=== PATIENT | female | born 1985 | race Caucasian/White ===

== ENCOUNTER → 2016-10-17 | Outpatient (CLI) | payer MEDICAID ==
--- NOTE | 2016-10-17 17:23 | RADIOLOGY REPORT (SQ) ---
EXAM DESCRIPTION: U/S OB 14+ TA/1 GEST W/DOPPLER COMPLETED DATE/TIME: 10/17/2016 5:11 pm REASON FOR STUDY: ENCOUNTER FOR SUPERVISION OF NORMAL Z34.82 ENCOUNTER FOR SUPRVSN OF NOR MAL , SECOND TRI COMPARISON: None. TECHNIQUE: Static and Dynamic grayscale imaging performed of gravid uterus using transabdominal appr oach. Additional selected color Doppler and spectral images recorded. All stored on PACS. LIMITATIONS: None. FINDINGS: EGA: 14 weeks 3 days MAGGI: 04/14/2007 EFW: 96 +/- 14 g PERCENTILE: Not calculated MK: 4.4 cm PLACENTA: Maternal right side PRESENTATION: Transverse ANATOMY: HEART RATE: 153 beats per minute. FOUR CHAMBER HEART: Not visualize THREE VESSEL CORD: Yes. CORD INSERTION: Visualized. KIDNEYS AND BLADDER: Kidneys not visualize STOMACH: Visualized. Appears normal. SPINE: Not visualize BRAIN AND LATERAL VENTRICLES: Cerebellum and cisterna magna not visualized lateral ventricles were vi sualized. OTHER: No other significant finding. MATERNAL ADNEXA: Maternal ovaries not visualized. CERVICAL LENGTH: 3.3 cm Closed. OTHER: No other significant finding. IMPRESSION: LIVING INTRAUTERINE . ESTIMATED GESTATIONAL AGE 14 weeks 3 days NO VISUALIZED ANOMALIES. Trimester of : Second trimester - 13 weeks 1 day to 27 weeks 6 days. TECHNICAL DOCUMENTATION: JOB ID: [id number] [employer]- All Rights Reserved
== END ==
LOC: RAD 15:36
PROVIDERS: ATTEND Nurse Practitioner Women's Health
DX: Z34.82 Encounter for supervision of other normal pregnancy, second trimester (principal)
CPT/HCPCS: 76805; 93976

== ENCOUNTER 2017-02-16 09:58 | Observation (INO) | payer MEDICAID ==
[2017-02-16] MEDS ORDERED: RINGERS SOLUTION,LACTATED 1,000 ML IV ONE (11:00)
[2017-02-16 11:08] LABS: APPEARANCE,URINE CLOUDY; BILIRUBIN,URINE NEGATIVE (NEGATIVE); GLUCOSE, URINE NEGATIVE (NEGATIVE); KETONES,URINE TRACE mg/dL (NEGATIVE); LEUKOCYTE ESTERASE,URINE LARGE (NEGATIVE); NITRITE,URINE NEGATIVE (NEGATIVE); PROTEIN,URINE 30 mg/dL (NEGATIVE); URINE SPECIFIC GRAVITY 1.029; UROBILINOGEN,URINE NEGATIVE mg/dL (<2.0)
[2017-02-16] MEDS ORDERED: ONDANSETRON HCL INJ/PF 4 MG/2 ML SDV ONE (11:20)
[2017-02-16 11:26] LABS: URINE BARBITURATES SCREEN NEGATIVE; URINE METHADONE SCREEN NEGATIVE; URINE OPIATES LOW NEGATIVE; URINE PHENCYCLIDINE SCREEN NEGATIVE
[2017-02-16] MEDS ORDERED: ONDANSETRON HCL INJ/PF 4 MG/2 ML SDV IV ONE (11:48)
[2017-02-16 12:11] LABS: ABSOLUTE LYMPHOCYTES (AUTO) 1.3 10^3/uL (0.5-4.7); ABSOLUTE MONOCYTES (AUTO) 0.3 10^3/uL (0.1-1.4); ABSOLUTE NEUT (AUTO) 6.2 10^3/uL (1.7-8.2); BASOPHILS % (AUTO) 0.4 % (0-2); EOSINOPHILS % (AUTO) 0.4 % (0-6); HEMATOCRIT 37.2 % (36.0-47.0); HEMOGLOBIN 12.7 g/dL (12.0-15.5); HGB HCT DIFFERENCE 0.9; LYMPHOCYTES % (AUTO) 16.7 % (13-45); MEAN CORPUSCULAR HEMOGLOBIN 29.6 pg (27.0-33.4); MEAN CORPUSCULAR HGB CONC 34.2 g/dL (32.0-36.0); MEAN CORPUSCULAR VOLUME 87 fl (80-97); MONOCYTES % (AUTO) 4.4 % (3-13); RED BLOOD COUNT 4.29 10^6/uL (3.72-5.28); RED CELL DISTRIBUTION WIDTH 13.4 % (11.5-14.0); SEGMENTED NEUTROPHILS % (AUTO) 78.1 % (42-78)
[2017-02-16 13:10] LABS: ADD HIVPANEL? NO; HIV (1 AND 2) ANTIBODY NEGATIVE (NEGATIVE)
[2017-02-16 13:35] VITALS: BP 114/64
[2017-02-16 14:26] LABS: CHLAM PCR NOT DETECTED (NOT DETECT)
[2017-02-16] MEDS ORDERED: ACETAMINOPHEN 325 MG TABLET ONE (17:26)
[2017-02-16] MEDS ORDERED: RINGERS SOLUTION,LACTATED 1,000 ML IV PRN (19:00)
[2017-02-16] MEDS ORDERED: ZOLPIDEM TARTRATE 5 MG TABLET ONE (20:41)
[2017-02-16] MEDS ORDERED: ZOLPIDEM TARTRATE 5 MG TABLET PO ONE (20:45)
[2017-02-17] MEDS ORDERED: ONDANSETRON 4 MG TAB.RAPDIS PO ONE (06:17)
[2017-02-17] MEDS ORDERED: ONDANSETRON 4 MG TAB.RAPDIS ONE (06:20)
[2017-02-17] MEDS ORDERED: ACETAMINOPHEN 325 MG TABLET ONE (06:21)
[2017-02-17] MEDS ORDERED: ACETAMINOPHEN 325 MG TABLET PO ONE (06:22)
--- NOTE | 2017-02-17 10:44 | PDOC DISCHARGE SUMMARY ---
General - Admit/Disc Date/PCP Admission Date/Primary Care Provider: 02/16/17 12:55 SHANNON LAFLEUR NP Discharge Date: 02/17/17 - Discharge Diagnosis (1) Suicidal ideation Is this a current diagnosis for this admission?: Yes Summary: Needs Involuntary commitment per Psych. Will discharge to ER for IC. - Additional Information Home Medications: Vitamin [-U Multiple Vitamin Capsule] 1 cap PO DAILY #0 capsule 10/21/14 History of Present Illness Patient complains of: suicidal ideation History of Present Illness: ASH WELSH is a 31 year old female with no care presented to L &D with complaint of N/V and abd cramping but upon arrival to to L&D notified provider (Dr. Ruiz) that she was going to kill herself. Hospital Course Hospital Course: 31 year old female with no care presented to L&D with complaint of N/V and abd cramping but upon arrival to to L&D notified provider (Dr. Ruiz) that she was going to kill herself. Pt was cleared from obstetrical complaints and admitted for observation by Dr. Ruiz until Psych could see her. Pt attempted to Leave AMA today - however able to stall pt and Psych has seen and evaluated her and recommends Involuntary commitment Physical Exam - Physical Exam Vital Signs: Temp Pulse Resp BP Pulse Ox 97.8 F 68 16 114/64 02/16/17 13:34 02/16/17 13:34 02/16/17 13:34 02/16/17 13:34 Intake & Output 02/16/17 02/17/17 02/18/17 06:59 06:59 06:59 Intake Total 300 Balance 300 Weight 81.4 kg General appearance: PRESENT: no acute distress Head exam: PRESENT: atraumatic Respiratory exam: PRESENT: clear to auscultation javier, symmetrical, unlabored Cardiovascular exam: PRESENT: RRR. ABSENT: diastolic murmur, rubs, systolic murmur Pulses: PRESENT: normal dorsalis pedis pul, +2 pedal pulses bilateral GI/Abdominal exam: PRESENT: normal bowel sounds, soft. ABSENT: distended, guarding, mass, organolmegaly, rebound, tenderness Rectal exam: PRESENT: deferred Extremities exam: PRESENT: full ROM. ABSENT: calf tenderness, clubbing, pedal edema Neurological exam: PRESENT: alert, awake, oriented to person, oriented to place , oriented to time, oriented to situation, CN II-XII grossly intact. ABSENT: motor sensory deficit Psychiatric exam: PRESENT: appropriate affect, normal mood. ABSENT: homicidal ideation, suicidal ideation Skin exam: PRESENT: dry, intact, warm. ABSENT: cyanosis, rash Result Laboratory Results: 02/16/17 11:47 02/16/17 02/16/17 02/16/17 10:20 11:47 11:47 WBC 8.0 RBC 4.29 Hgb 12.7 Hct 37.2 MCV 87 MCH 29.6 MCHC 34.2 RDW 13.4 Plt Count 229 Seg Neutrophils % 78.1 H Lymphocytes % 16.7 Monocytes % 4.4 Eosinophils % 0.4 Basophils % 0.4 Absolute Neutrophils 6.2 Absolute Lymphocytes 1.3 Absolute Monocytes 0.3 Absolute Eosinophils 0.0 Absolute Basophils 0.0 Urine Color EMI Urine Appearance CLOUDY Urine pH 5.0 Ur Specific [place] 1.029 Urine Protein 30 H Urine Glucose (UA) NEGATIVE Urine Ketones TRACE H Urine Blood NEGATIVE Urine Nitrite NEGATIVE Ur Leukocyte Esterase LARGE H Urine WBC (Auto) 18 Urine RBC (Auto) 1 Blood Type A NEGATIVE Antibody Screen NEGATIVE 02/16/17 11:47 WBC RBC Hgb Hct MCV MCH MCHC RDW Plt Count Seg Neutrophils % Lymphocytes % Monocytes % Eosinophils % Basophils % Absolute Neutrophils Absolute Lymphocytes Absolute Monocytes Absolute Eosinophils Absolute Basophils Urine Color Urine Appearance Urine pH Ur Specific [place] Urine Protein Urine Glucose (UA) Urine Ketones Urine Blood Urine Nitrite Ur Leukocyte Esterase Urine WBC (Auto) Urine RBC (Auto) Blood Type A NEGATIVE Antibody Screen Status: Imported from PACS Plan Discharge Plan: To ER for Involuntary Commitment
--- NOTE | 2017-02-17 10:53 | PSYCHOLOGICAL NOTE ---
<TAY SAMUELSBETH - Last Filed: 02/17/17 10:32> Psych Note - Psych Note Psych Note: Patient is a 31-year-old female who is under observation in labor and delivery. Patient is reportedly 32 weeks . Patient reported to her OB yesterday upon arrival that she wanted to commit suicide. Patient this morning continues to endorse that she wants to . Patient reports a plethora of social stressors. Patient states he is hopeless about her future and states that she has nothing. Patient reports she and her fianc had been residing with his mother and attempts to get custody of his 6-month-old baby with another woman. Patient states last week her fianc overdosed accidentally on heroin and was revived with Narcan. Patient reports to her knowledge that was her fianc's second time using. Patient reports she has been anxious and upset ever since this incident. Patient reports she struggled with concerns and worrying over how to provide for her 2-year-old who is living with them as well as their unborn baby. Patient reports since the overdose incident, her fianc has since abruptly left and she has not heard from him. She states they were at the home and he was cutting her son's hair, and left to get more batteries. She states he never came back. She reports he has posted on social media that he is single and possibly on the other side of the state. Patient reports she contacted his mother who reportedly told her she could retrieve her belongings but neither she or he are welcome to return to her home. Patient reports since she has not heard from her fianc she has been distraught, with stomach cramping and vomiting. She states yesterday she had her first thoughts of committing suicide. Note, patient initially stated she gave her 2-year-old and all of his belongings to her ex- because she feared she would hurt him, but when this was brought back up later in conversation she attempted to deny that she stated this. Note, patient clearly stated earlier she had thoughts of hurting her son Jose G. Patient just repeatedly states tearfully that she loves him and he is her whole world. She states her ex- is supportive and that they were /together for 17 years and broke up because he cheated on her with his now girlfriend. She states staying there is not an option because he and his girlfriend have a new baby. She does state all of her children are safe residing with him. She states she has no other personal belongings except a couple of pairs of pants at her fianc's home. Patient reports no other familial support. Patient reports her father had always been her big support system; however states her brother shot and killed him 3 years ago with the plan to collect insurance money. Patient reports she is hopeless, worthless, once her baby out, and wants to . It is alert and oriented. Mood is depressed with extremely tearful affect. Patient endorses suicidal ideations and possible homicidal ideations. Patient denies A/VH; delusions not noted. Thought processes were organized. Conversational speech was labile for rate, tone, and prosody. Intellectual abilities were estimated within average range. Attention and focus were poor. Insight, judgment, impulse control are poor. 311 (F 32.9) unspecified depressive disorder Social stressors Rule out cannabis use disorder Patient is recommended for involuntary commitment. Patient is considered high risk for suicide attempts in possibly attempting to harm her child as she indicated early in the conversation. Patient does have severe social stressors which are likely exasperating her depression and self-reported anxiety; however , in this case it appears they are risk factors for an actual suicide attempt. Patient states she is hopeless and worthless. Patient is reporting she wants to . We will additionally request a social work/discharge planning consultation. I consulted with Dr. Espinoza in regards to the care and management of this patient. HIGHWAY DESIGN ENGINEER states she is in agreement with disposition and recommendations. <HOMER ESPINOZA - Last Filed: 02/17/17 18:31> Psych Note - Psych Note Psych Note: Psychiatric provider for [facility] recommended Zoloft 50 mg daily if Patient was requesting medication management, and indicated "Patient should be warned of the risks and benefits and possible side effects to the fetus" with regard to the medication and "monitored by high risk erecting crane operator."
[2017-02-18 05:39] LABS: HEPATITIS C VIRUS AB <0.1 s/co ratio (0.0-0.9)
== END 2017-02-17 10:39 | disposition home or self-care (01) ==
LOC: LC 09:58 → LR 12:55
PROVIDERS: ADMIT Obstetrics & Gynecology Gynecology; ATTEND Obstetrics & Gynecology Gynecology
DX: O99.343 Other mental disorders complicating pregnancy, third trimester (principal); R45.851 Suicidal ideations; O09.33 Supervision of pregnancy with insufficient antenatal care, third trimester; F32.9 Major depressive disorder, single episode, unspecified; F41.9 Anxiety disorder, unspecified; O26.893 Other specified pregnancy related conditions, third trimester; R11.2 Nausea with vomiting, unspecified; R10.9 Unspecified abdominal pain; Z3A.32 32 weeks gestation of pregnancy; Z63.8 Other specified problems related to primary support group; Z63.79 Other stressful life events affecting family and household
CPT/HCPCS: 59025; 86900; 86901; 36415; 87210; 86850; 85025; 86762; 86592; 81001; 87081; 87340; 86701; 80307; 87491; 87591; 86803; 86804; J2790; J3490 ×3; S0119; J2405

== ENCOUNTER 2017-02-17 11:14 | Emergency (ER) | payer MEDICAID ==
--- NOTE | 2017-02-17 11:29 | ER Document Report ---
ED Psych Disorder / Suicide - General Chief Complaint: Psych Problem Stated Complaint: PSYCH EVAL Time Seen by Provider: 02/17/17 11:27 Notes: Patient is a 31-year-old female who presents from the OB floor after a labor check when she mentioned to Dr. Hernandez, the drop wire hanger, that she is suicidal. The patient mentioned to mental health yesterday that she wanted to kill herself and her 2-year-old baby. The baby is in custody with the ex- . The baby theo is a heroin addict and this is causing increased stress to the patient. Her fianc also has run away to [place]. Patient is having mild suprapubic cramping and was diagnosed with a UTI yesterday. She is unsure if she received antibiotics. She denies leakage of fluid, vaginal bleeding, flank pain, homicidal ideation, nausea, vomiting or fevers. TRAVEL OUTSIDE OF THE [place] IN LAST 30 DAYS: No - Related Data Allergies/Adverse Reactions: oxycodone HCl [From Percocet] Allergy (Intermediate, Verified 02/16/17 21:36) Hives sumatriptan [From Imitrex] Allergy (Intermediate, Verified 02/16/17 21:36) Hives sumatriptan succinate [From Imitrex] Allergy (Intermediate, Verified 02/16/17 21 :36) Hives Past Medical History - General Information source: Patient - Social History Smoking Status: Unknown if Ever Smoked Family History: Reviewed & Not Pertinent Neurological Medical History: Reports: Hx Migraine Past Surgical History: Reports: Hx Oral Surgery - Immunizations Hx Diphtheria, Pertussis, Tetanus Vaccination: Yes Review of Systems - Review of Systems Notes: REVIEW OF SYSTEMS: CONSTITUTIONAL: -fevers, -chills EENT: -eye pain, -difficulty swallowing, -nasal congestion CARDIOVASCULAR:-chest pain, -syncope. RESPIRATORY: -cough, -SOB GASTROINTESTINAL: -abdominal pain, -nausea, -vomiting, -diarrhea GENITOURINARY: +dysuria, -hematuria MUSCULOSKELETAL: -back pain, -neck pain SKIN: -rash or skin lesions. HEMATOLOGIC: -easy bruising or bleeding. LYMPHATIC: -swollen, enlarged glands. NEUROLOGICAL: -altered mental status or loss of consciousness, -headache, - neurologic symptoms PSYCHIATRIC: -anxiety, +depression, +SI ALL OTHER SYSTEMS REVIEWED AND NEGATIVE. Physical Exam - Vital signs Vitals: Temp Pulse Resp BP Pulse Ox 97.7 F 113 H 20 128/90 H 99 02/17/17 11:28 02/17/17 11:28 02/17/17 11:28 02/17/17 11:28 02/17/17 11:28 - Notes Notes: PHYSICAL EXAMINATION: GENERAL: Crying. HEAD: Atraumatic, normocephalic. EYES: Pupils equal round and reactive to light, extraocular movements intact, sclera anicteric, conjunctiva are normal. ENT: nares patent, oropharynx clear without exudates. Moist mucous membranes. NECK: Normal range of motion, supple without lymphadenopathy LUNGS: Breath sounds clear to auscultation bilaterally and equal. No wheezes rales or rhonchi. HEART:Tachycardia. ABDOMEN: Soft, nontender, normoactive bowel sounds. No guarding, no rebound. No masses appreciated. EXTREMITIES: Normal range of motion, no pitting or edema. No cyanosis. NEUROLOGICAL: Cranial nerves grossly intact. Normal speech, normal gait. Normal sensory and motor exams. PSYCH: Crying. Expressing suicidal thoughts to mental health. SKIN: Warm, Dry, normal turgor, no rashes or lesions noted. Course - Re-evaluation Re-evalutation: 02/17/17 11:41 Looking through labs and urine from yesterday, they are remarkable for a UTI and positive UDS for THC. Mental Health has evaluated patient. She already is on a IVC. Will begin Macrobid 100 mg twice daily. Since patient will be in the ER, will obtain heart tones every 12 hours and have nurse alert MD if patient is experience any signs of labor. Patient will then go up to OB for a labor check. Mental health and case management are involved in the case to help with disposition. If the patient decides to not breast-feed, will begin Zoloft. 02/17/17 12:24 Pt remains agitated and attempted to leave ER. She is on an IVC. Weighing risks and benefits of antipsychotic medications in third trimester pregnancies, will choose ketamine IM because of its category class B. 02/17/17 12:50 Pt escaped the ER and police were called. She was brought back into the ER and placed into a room. Patient said that she promises to be more cooperative. Told her that since she is an IVC, we could restrain her physically or chemically for her own protection. She understands. Patient never received ketamine, but we will provide her if she tries to escape again. Pt also continuing to cry. When she is crying, she is feeling nauseous and vomited once. Gave her p.o. Benadryl, but she vomited this up. Will provide her with an IM dose of Phenergan. She has no abdominal pain at this time. 02/17/17 18:14 Due to patient's homicidal and suicidal ideations, psychiatry is recommending transfer to a center that has highwall drill operator. There are no highwall drill operator physicians at [facility]. Placed call to [facility] to discuss with OB. 02/17/17 18:[address] Mesa (mid wife Attending at [facility]) and he does not feel that patient needs to be transferred to highwall drill operator just to start an SSRI. If the patient requires transfer due to Inpatient Psych, then mid wife will consult. - Vital Signs Vital signs: Temp Pulse Resp BP Pulse Ox 97.8 F 110 H 20 123/82 99 02/17/17 12:34 02/17/17 12:34 02/17/17 12:34 02/17/17 12:34 02/17/17 12:34 Discharge - Discharge Clinical Impression: Suicidal ideation, Homicidal ideation UTI (urinary tract infection) Qualifiers: Urinary tract infection type: site unspecified Hematuria presence: without hematuria Qualified Code(s): N39.0 - Urinary tract infection, site not specified Condition: Stable Disposition: PSYCH HOSP/UNIT Referrals: SHANNON LAFLEUR, SENIOR ELECTRICAL ENGINEER [Primary Care Provider] - Follow up as needed
--- NOTE | 2017-02-17 12:03 | PSYCHOLOGICAL NOTE ---
Psych Note - Psych Note Psych Note: Patient is a 31-year-old female under involuntary commitment at [facility] ER. Please note patient was seen by this clinician and evaluated on the labor and delivery floor. Per hospital policy, patient was discharged from observation on labor and delivery and brought down to the emergency room for her involuntary commitment. Please see earlier episode for consultation note. Patient is recommended to continue under involuntary commitment.
[2017-02-17] MEDS ORDERED: KETAMINE HCL INJ 500 MG/10 ML VIAL IM ONE (12:24)
[2017-02-17] MEDS ORDERED: DIPHENHYDRAMINE HCL 50 MG CAPSULE PO ONE ×2 (13:36→19:57)
[2017-02-17] MEDS ORDERED: PROMETHAZINE HCL INJ 25 MG/1 ML VIAL IM ONE (14:27)
[2017-02-17] MEDS: NITROFURANTOIN MONOHYD/M-CRYST 100 MG CAPSULE PO SCH (17:58)
[2017-02-17] MEDS ORDERED: OLANZAPINE 5 MG TABLET PO ONE (19:57)
--- NOTE | 2017-02-17 20:41 | PDOC CONSULTATION ---
Consultation Consult Date: 02/17/17 Attending physician:: CHASIDY PEDROZA Consult reason:: Starting new meds History of Present Illness Admission Date/PCP: SHANNON LAFLEUR NP Patient complains of: suicidal ideation History of Present Illness: ASH WELSH is a 31 year old female who presented on Friday 02/[address] Ruiz for N/V and patient cleared from obstetric standpoint. However, upon attempt to discharge patient she informed Dr. Ruiz and nursing staff on L& D that she would kill herself. She was monitored overnight on L&D due to not having a bed in the ER then Psych saw pt this am and recommended Involuntary commitment. She was involuntary committed in the ER (however apparently escaped - see ER note). Multiple psychosocial issues and need for discharge planning. Psych has recommended starting Zoloft and Zyprexa and that she be monitored by high risk obstetrics due to these medications. Dr. Piña ( shuffle board operator) was notified at [facility] recommended high risk obstetrics not needed but rather Inpatient psych recommended. SInce not able to transfer at this time they have now consulted LOT TECHNICIAN here. She was already discharged from our care this am - see note on admission under Dr. Ruiz 02/16. Patient's 4 children apparently reside with her ex at this point and this was reportedly planned with a high ranking member of gang in [place]. She now feels that she can't escape and that she wishes to harm herself and possibly others. Past Medical History LMP: 32 wk preg Gynecological Infection: No Neurological Medical History: Reports: Migraine Social History Information Source: Patient, [facility] Records Lives with: Other Smoking Status: Never Smoker Hx Recreational Drug Use: No Drugs: None Hx Prescription Drug Abuse: No - Advance Directive Resuscitation Status: Full Code Family History Family History: Reviewed & Not Pertinent Parental Family History Reviewed: No Children Family History Reviewed: NA Sibling(s) Family History Reviewed.: NA Medication/Allergy Home Medications: Vitamin [-U Multiple Vitamin Capsule] 1 cap PO DAILY #0 capsule 10/21/14 Allergies/Adverse Reactions: oxycodone HCl [From Percocet] Allergy (Intermediate, Verified 02/16/17 21:36) Hives sumatriptan [From Imitrex] Allergy (Intermediate, Verified 02/16/17 21:36) Hives sumatriptan succinate [From Imitrex] Allergy (Intermediate, Verified 02/16/17 21 :36) Hives Review of Systems Constitutional: ABSENT: chills, fever(s), headache(s), weight gain, weight loss Psychiatric: PRESENT: anxiety, homidical ideation, suicidal ideation Physical Exam - Physical Exam Vital Signs: Temp Pulse Resp BP Pulse Ox 97.8 F 110 H 20 123/82 99 02/17/17 12:34 02/17/17 12:34 02/17/17 12:34 02/17/17 12:34 02/17/17 12:34 Intake & Output 02/16/17 02/17/17 02/18/17 06:59 06:59 06:59 Weight 78.925 kg General appearance: PRESENT: no acute distress, well-developed, well-nourished Head exam: PRESENT: atraumatic, normocephalic Respiratory exam: PRESENT: clear to auscultation javier, symmetrical, unlabored Cardiovascular exam: PRESENT: RRR. ABSENT: diastolic murmur, rubs, systolic murmur Pulses: PRESENT: normal dorsalis pedis pul, +2 pedal pulses bilateral Rectal exam: PRESENT: deferred Extremities exam: PRESENT: full ROM. ABSENT: calf tenderness, clubbing, pedal edema Neurological exam: PRESENT: alert, awake, oriented to person, oriented to place , oriented to time, oriented to situation, CN II-XII grossly intact. ABSENT: motor sensory deficit Psychiatric exam: PRESENT: agitated, homicidal ideation, suicidal ideation Skin exam: PRESENT: abrasion Assessment & Plan - Diagnosis (1) Suicidal ideation Is this a current diagnosis for this admission?: Yes Plan: Zoloft is safe to start at this time and no indications for need to monitor this drug for obstetric standpoint - only from effectiveness for SI/HI standpoint. Zyprexa (antipscychotic) would also be safe to start at this time - 3rd trimester. There are possibly a few studies that may suggest risk of but these statistically inconclusive. Monitor for signs or symptoms of labor otherwise no indications for outpatient monitoring of any other fashion. Risk to benefits in category C in 3rd trimester would be to start medications and continue if effective. No need to have further input from OB standpoint unless situation changes. Spoke with Dr. Piña (visual aid expert) at [facility] and he agreed with above recommendations. He recommended that if no bed at [facility] for inpatient PSych that poss could consider other places like [place] or [facility]. He strongly recommends inpatient Psych management given patients history which I concur with. Thank you for your interest in the care of this obstetric patient. All care labs to date were drawn on 02/16 due to patient having no care. If we could be of further service please contact senior consultant again. (2) Homicidal ideation Is this a current diagnosis for this admission?: Yes - Time Time Spent with patient: patient was not seen again as see was seen and evaluated on my floor today and discharged. Psych only needed recommendations on medications. Medications reviewed and adjusted accordingly: Yes Anticipated discharge: Home Within: Other - Inpatient Certification Based on my medical assessment, after consideration of the patient's comorbidities, presenting symptoms, or acuity I expect that the services needed warrant INPATIENT care.: Yes I certify that my determination is in accordance with my understanding of Medicare's requirements for reasonable and necessary INPATIENT services [42 CFR 412.3e].: Yes Medical Necessity: Need Close Monitoring Due to Risk of Patient Decompensation, Risk of Complication if Not Cared For in Hospital, Risk of Diagnosis Which Will Require Inpatient Eval/Care/Monitoring Post Hospital Care: D/C Stitch Cleaner Documentation - Plan Summary Plan Summary: Continue involuntary commitment
[2017-02-18] MEDS: NITROFURANTOIN MONOHYD/M-CRYST 100 MG CAPSULE PO SCH (09:05)
--- NOTE | 2017-02-18 10:44 | ER Document Report ---
Doctor's Note Notes: 02/18/17 10:41 Patient has been seen and evaluated resting comfortably no acute distress. Laboratory values previous provider note and vital signs have been evaluated. Patient otherwise looks to be stable for disposition/transfer. Patient is upset and crying when I told her that she would not be going home today and she will remain on IVC petition. Otherwise no obvious distress
[2017-02-18 15:46] VITALS: BP 128/82
--- NOTE | 2017-02-18 15:46 | PSYCHOLOGICAL NOTE ---
Psych Note - Psych Note Psych Note: Patient is a 31 year old female who is under IVC at [facility]. Patient is 32 weeks . Patient disclosed to me yesterday during evaluation that she wanted to , and additionally acknowledged she had thoughts that scared her. Note, when asked if she had thoughts of hurting her 2 year old, she shook her head yes while crying; however, later in the conversation denied making any statements related to SI. Patient was commended yesterday for handing her son over to her exhusband for safekeeping while she got help. Patient was referred for inpatient psychiatric treatment and accepted to [facility] by Dr. Diallo. CPS worker, Carmen Frye was bedside and provided information as appropriate. Patient is recommended to continue under IVC and follow through with placement. I consulted with Dr. Espinoza in regards to the care and management of this patient.
== END 2017-02-18 15:45 ==
LOC: ER 11:14
DX: R45.850 Homicidal ideations (principal); R45.851 Suicidal ideations; N39.0 Urinary tract infection, site not specified; R10.9 Unspecified abdominal pain
CPT/HCPCS: 99285; J3490 ×3; J2550; J8499

== ENCOUNTER 2017-03-23 21:21 | Outpatient (CLI) | payer MEDICAID ==
[2017-03-23 21:47] LABS: BILIRUBIN,URINE NEGATIVE (NEGATIVE); GLUCOSE, URINE NEGATIVE (NEGATIVE); KETONES,URINE NEGATIVE (NEGATIVE); LEUKOCYTE ESTERASE,URINE LARGE (NEGATIVE); NITRITE,URINE NEGATIVE (NEGATIVE); PROTEIN,URINE 30 mg/dL (NEGATIVE); URINE SPECIFIC GRAVITY 1.027
[2017-03-23 21:53] LABS: APPEARANCE,URINE SLIGHTLY HAZY
[2017-03-23 22:11] LABS: URINE BARBITURATES SCREEN NEGATIVE; URINE METHADONE SCREEN NEGATIVE; URINE OPIATES LOW NEGATIVE; URINE PHENCYCLIDINE SCREEN NEGATIVE
--- NOTE | 2017-03-23 23:09 | Non Stress Test Report ---
Non Stress Test Datetime Report Generated by CPN: 03/23/2017 23:09 DEMOGRAPHIC EGA NST: 36.6 INDICATION Indication for Study: Ordered by Provider; Other Indication for Study (NST) Other: LC URINE RESULTS Urine Protein, NST: Positive Urine Ketones - NST: Negative Urine Glucose - NST: Negative Urine Blood - NST: Negative MONITORING Monitor Explained: Monitor Explained; Test Explained; Patient Verbalized Understanding Time on Monitor: 03/23/2017 21:41 Time off Monitor: 03/23/2017 22:30 NST Duration: 49 NST INTERVENTIONS NST Interventions: PO Hydration Physician Notified NST: Dr. Alonzo BABY A: [id number] BABY A Movement : Present Contraction Frequency : x2 FHR Baseline : 135 Accelerations : 15X15 Decelerations : None Variability : Moderate 6-25bpm NST Review: Meets Criteria for Reactive NST NST Review and Verified By : Hayes Mariscal RN Results: Reactive NST REPORT Report Trigger: Send Report
== END 2017-03-23 22:35 | disposition home or self-care (01) ==
LOC: LC 21:21
PROVIDERS: ATTEND Obstetrics & Gynecology
PROC: 4A1HXCZ Monitoring of Products of Conception, Cardiac Rate, External Approach (ICD-10-PCS; principal; 2017-03-23)
DX: Z34.93 Encounter for supervision of normal pregnancy, unspecified, third trimester (principal); Z3A.36 36 weeks gestation of pregnancy
CPT/HCPCS: 59025; 80307; 81005

== ENCOUNTER 2017-04-04 06:58 | Inpatient (IN) | payer MEDICAID ==
[2017-04-04] MEDS ORDERED: OXYTOCIN/NORMAL SALINE 20 UNIT/1,000 ML RTUINJ ONE (07:10)
[2017-04-04] MEDS ORDERED: LIDOCAINE 1% INJ-PF (10 MG/ML) 30 ML SDV ONE (07:10)
[2017-04-04] MEDS ORDERED: ZOLPIDEM TARTRATE 5 MG TABLET PO PRN (07:26)
[2017-04-04] MEDS ORDERED: ACETAMINOPHEN 650 MG SUPP.RECT PR PRN (07:26)
[2017-04-04] MEDS ORDERED: MEASLES,MUMPS&RUBELLA VACC/PF 0.5 ML VIAL SUBCUT PRN (07:26)
[2017-04-04] MEDS ORDERED: MAGNESIUM HYDROXIDE SUSP 30 ML UDCUP PO PRN (07:26)
[2017-04-04] MEDS ORDERED: DIPH/PERTUSS(ACELL)/TETANUS VAC/PF 0.5 ML SYR (>=10YO) IM PRN (07:26)
[2017-04-04] MEDS ORDERED: BENZOCAINE/MENTHOL AEROSOL SPRAY 56 ML TOP PRN (07:26)
[2017-04-04] MEDS ORDERED: ACETAMINOPHEN WITH CODEINE #3 TABLET PO PRN (07:26)
[2017-04-04] MEDS ORDERED: PSEUDOEPHEDRINE HCL 30 MG TABLET PO PRN (07:26)
[2017-04-04] MEDS ORDERED: DIPHENHYDRAMINE HCL 25 MG CAPSULE PO PRN (07:26)
[2017-04-04] MEDS ORDERED: PROMETHAZINE HCL 25 MG TABLET PO PRN (07:26)
[2017-04-04] MEDS ORDERED: OXYTOCIN/NORMAL SALINE 20 UNIT/1,000 ML RTUINJ IV PRN (07:26)
[2017-04-04] MEDS ORDERED: DIBUCAINE 1% OINTMENT 28 GM TP PRN (07:26)
[2017-04-04] MEDS ORDERED: PROMETHAZINE HCL INJ 25 MG/1 ML VIAL IV PRN (07:26)
[2017-04-04] MEDS ORDERED: PROMETHAZINE HCL 25 MG SUPP.RECT PR PRN (07:26)
[2017-04-04] MEDS ORDERED: GLYCERIN/WITCH HAZEL LEAF 1 EACH MED..PAD TP PRN (07:26)
[2017-04-04] MEDS ORDERED: NA PHOS,M-B/NA PHOS,DI-BA (ADULT) 133 ML ENEMA PR PRN (07:26)
[2017-04-04 08:22] LABS: ABSOLUTE LYMPHOCYTES (AUTO) 1.7 10^3/uL (0.5-4.7); ABSOLUTE MONOCYTES (AUTO) 0.5 10^3/uL (0.1-1.4); BASOPHILS % (AUTO) 0.3 % (0-2); EOSINOPHILS % (AUTO) 0.3 % (0-6); HEMATOCRIT 40.2 % (36.0-47.0); HEMOGLOBIN 13.2 g/dL (12.0-15.5); LYMPHOCYTES % (AUTO) 14.1 % (13-45); MEAN CORPUSCULAR HEMOGLOBIN 27.8 pg (27.0-33.4); MEAN CORPUSCULAR HGB CONC 32.8 g/dL (32.0-36.0); MEAN CORPUSCULAR VOLUME 85 fl (80-97); MONOCYTES % (AUTO) 3.9 % (3-13); PLATELET COUNT 197 10^3/uL (150-450); RED BLOOD COUNT 4.73 10^6/uL (3.72-5.28); RED CELL DISTRIBUTION WIDTH 14.1 % (11.5-14.0); SEGMENTED NEUTROPHILS % (AUTO) 81.4 % (42-78); TOTAL CELLS COUNTED % (AUTO) 100 %; WHITE BLOOD COUNT 12.3 10^3/uL (4.0-10.5)
[2017-04-04] MEDS ORDERED: ACETAMINOPHEN WITH CODEINE #3 TABLET ONE (08:24)
[2017-04-04] MEDS: ACETAMINOPHEN WITH CODEINE #3 TABLET PO PRN ×2 (08:25→16:36)
--- NOTE | 2017-04-04 08:48 | Warning Signs in Babies ---
VOD Warning Signs Datetime Report Generated by [facility]: 04/04/2017 08:48 VOD#608 -Warning Signs in Babies: Viewed with Parent(s)/Family (02/16/2017 10:19:BRANDON Martinez)
--- NOTE | 2017-04-04 10:50 | Admission Physical ---
Datetime Report Generated by CPN: 04/04/2017 10:49 CURRENT ADMISSION Chief Complaint: Uterine Contractions Chief Complaint: Uterine Contractions; Other Chief Complaint Other: pt suicidal Indication for Induction: Not Applicable Indication for Induction: Not Applicable Indication for Induction: Term, Intrauterine ; Active Labor Indication for Induction: , Intrauterine Admit Plan: Admit to Unit; Initiate Labor Protocol Admit Plan: Admit to Unit; Observation/Evaluation ALLERGIES Medication Allergies: Yes Medication Allergies: oxycodone HCl/MO/Hives (04/04/2017); sumatriptan succinate/MO/Hives (04/04/2017); sumatriptan/MO/Hives (04/04/2017) Medication Allergies: oxycodone HCl/MO/Hives (03/23/2017); sumatriptan succinate/MO/Hives (03/23/2017); sumatriptan/MO/Hives (03/23/2017) Medication Allergies: oxycodone HCl/MO/Hives (02/16/2017); sumatriptan succinate/MO/Hives (02/16/2017); sumatriptan/MO/Hives (02/16/2017) Medication Allergies: oxycodone HCl/MO/Hives (07/16/2013); sumatriptan succinate/MO/Hives (07/16/2013); sumatriptan/MO/Hives (07/16/2013) Latex: No Latex Allergies Food Allergies: na Environmental Allergies: na OBSTETRICAL HISTORY EDC: 04/14/2017 00:00 : 5 Para: 4 Term: 4 : 0 SAB: 0 IAB: 0 Ectopic: 0 Livin Cesareans: 0 VBACs: 0 Multiple Births: 0 Gestational Diabetes: No Rh Sensitization: No Incompetent Cervix: No JANIE: No Infertility: No ART Treatment: No Uterine Anomaly: No IUGR: No Hx Previous C/S: No Macrosomia: No Hx Loss/Stillborn: No PIH: No Hx : No Placenta Previa/Abruption: No Depression/PP Depression: No PTL/PROM: No Post Hemorrhage: No Current Procedures: Ultrasound Obstetrical History Comments: G1: G2: G3:2010? G4: 09/2014 G5:current (no PNC) SEE RECORDS Alcohol: No Marijuana : Yes Marijuana Comments: Pt denies. Positive urine screens. Cocaine: No Other Illicit Drugs: No Cigarettes: Never Smoker. [id number] MEDICAL HISTORY Diabetes: No Blood Transfusion: No Pulmonary Disease (Asthma, TB): No Breast Disease: No Hypertension: No Beater Tender Surgery: No Heart Disease: No Hosp/Surgery: Yes Autoimmune Disorder: No Anesthetic Complications: No Kidney Disease: No Abnormal Pap Smear: No Neuro/Epilepsy: No Psychiatric Disorders: Yes Other Medical Diseases: No Hepatitis/Liver Disease: No Significant Family History: No Varicosities/Phlebitis: No Trauma/Violence : No Thyroid Dysfunction: No Medical History Comments: wisdom teeth removed, hospitalized for childbirth. [facility]C 01/2017. [facility] INFECTIOUS HISTORY Gonorrhea: No Genital Herpes: No Chlamydia: No Tuberculosis: No Syphilis: No Hepatitis: No HIV/AIDS Exposure: No Rash or Viral Illness: No HPV: No Infectious History Comments: denies PHYSICAL EXAM General: Normal General: Normal HEENT: Normal HEENT: Normal Neurologic: Normal Neurologic: Normal Thyroid: Normal Thyroid: Normal Heart: Normal Heart: Normal Lungs: Normal Lungs: Normal Breast: Deferred Breast: Deferred Back: Normal Back: Normal Abdomen: Normal Abdomen: Normal Genitourinary Exam: Normal Genitourinary Exam: Normal Extremities: Normal Extremities: Normal DTRs: Normal DTRs: Normal Pelvic Type: Adequate Pelvic Type: Adequate Vital Signs: Reviewed VAGINAL EXAM Dilatation: 10 MEMBRANES Pooling: Positive Membranes: Ruptured FETUS A EGA: 38.4 Monitoring: External US Monitoring: External US FHR- Baseline: 120 Presentation: Vertex Admit Comment: Poor care, mental health issues. PLANS FOR LABOR AND DELIVERY Labor and Delivery: None Pain Management: Epidural Feeding Preference: Formula Benefit of Breast Feed Discussed: Yes Circumcision: Yes INFORMED CONSENT Signature: with User ID: [email or web address] Signature: with User ID: [email or web address] : with User ID: [email or web address]
[2017-04-04] MEDS: PRENATAL VITAMIN W DHA CAPSULE PO SCH (11:27)
[2017-04-04] MEDS: SENNOSIDES/DOCUSATE 8.6-50 MG 1 EACH TABLET PO SCH (11:28)
[2017-04-04] MEDS: FERROUS SULFATE 325 MG TABLET PO SCH ×2 (11:29→18:27)
[2017-04-04] MEDS: FAMOTIDINE 20 MG TABLET PO SCH ×2 (11:30→21:31)
[2017-04-04] MEDS: DOCUSATE SODIUM 100 MG CAPSULE PO SCH ×2 (11:31→18:27)
--- NOTE | 2017-04-04 12:47 | Delivery Summary ---
Del Sum A-C Datetime Report Generated by CPN: 04/04/2017 12:46 DELIVERY PERSONNEL DELIVERY PERSONNEL: [id number] Delivery Doctor:: Hyacinth Alonzo MD Labor and Delivery Nurse:: Cassandra Mix RNclient technical specialist Nurse:: BRANDON Martinez Nursery Nurse:: Yvette Jones RN Qa Automation Developer/MANAGER: Abe Alarcon CST Qa Automation Developer/MANAGER: Melissa Vásquez, ST MATERNAL INFORMATION Delivery Anesthesia: None Medications After Delivery: Pitocin Bolus-Please Comment Meds After Delivery Comment: pitocin 20 units in 1000 ml nss Estimated Blood Loss (ml): 250 Maternal Complications: Other Other Maternal Complications: Limited care LABOR SUMMARY EDC: 04/14/2017 00:00 No. Babies in Womb: 1 Attempted: No Labor Anesthesia: None LABOR INFORMATION Reason for Induction: Not Applicable Onset of Labor: 04/04/2017 03:00 Complete Dilatation: 04/04/2017 07:41 Oxytocin: N/A Group B Beta Strep: 1 NO GROUP B STREPTOCOCCUS RECOVERED Steroids Given: None Reason Steroids Not Administered: Not Applicable MEMBRANES Membranes Rupture Method: Artificial Rupture of Membranes: 04/04/2017 07:15 Length of Rupture (hr): 0.62 Amniotic Fluid Color: Clear Amniotic Fluid Amount: Large Amniotic Fluid Odor: Normal STAGES OF LABOR Stage 1 hr: 4 Stage 1 min: 41 Stage 2 hr: 0 Stage 2 min: 11 Stage 3 hr: 0 Stage 3 min: 2 Total Time in Labor hr: 4 Total Time in Labor min: 54 VAGINAL DELIVERY Episiotomy: None Laceration #1: None Laceration Extension #1: N/A Laceration Repair: Not Applicable Sponge Count Correct: Vaginal Sweep Performed Sharps Count Correct: Yes CSECTION DELIVERY Primary Indication: N/A Secondary Indication: N/A CSection Incidence: N/A Labor: N/A Elective: N/A CSection Incision: N/A BABY A INFORMATION Infant Delivery Date/Time: 04/04/2017 07:52 Method of Delivery: Vaginal Born in Route : No : N/A Forceps: N/A Vacuum Extraction: N/A Shoulder Dystocia : No PRESENTATION/POSITION BABY A Presentation: Cephalic Cephalic Presentation: Vertex Vertex Position: Right Occipital Posterior Breech Presentation: N/A PLACENTA INFORMATION BABY A Placenta Delivery Time : 04/04/2017 07:54 Placenta Method of Delivery: Spontaneous Placenta Status: Delivered SCORES BABY A Heart Rate 1 min: >100 bpm Resp Effort 1 min: Good Cry Reflex Irritability 1 min: Cough or Sneeze or Pulls Away Muscle Tone 1 min: Active Motion Color 1 min: Body Tow, Extremities Blue Resuscitation Effort 1 min: Tactile Stimulation SCORE 1 MIN: 9 Heart Rate 5 min: >100 bpm Resp Effort 5 min: Good Cry Reflex Irritability 5 min: Cough or Sneeze or Pulls Away Muscle Tone 5 min: Active Motion Color 5 min: Body Tow, Extremities Blue Resuscitation Effort 5 min: N/A SCORE 5 MIN: 9 Resuscitation Effort 10 min: N/A INFANT INFORMATION BABY A Gestational Age at Delivery: 38.4 Gestational Status: Early Term- 37- 38.6 Weeks Outcome : Liveborn Condition : Stable Sex: Male IDENTIFICATION BABY A Verification Date/Time: 04/04/2017 08:29 ID Band Number: [id number] Mother's Name Verified: Yes RN Verifying : K Hossein RNC/ A Quijano RN WEIGHT/LENGTH BABY A Birthweight (gm): 3280 Infant Weight (lb): 7 Infant Weight (oz): 4 Length (in): 20.50 Length (cm): 52.07 CORD INFORMATION BABY A No. Cord Vessels: 3 Nuchal Cord : N/A Cord Blood Taken: Yes-For Eval (Mom's Blood Type - or O+) Suction: None ASSESSMENT BABY A Infant Complications: None Physical Findings at Delivery: Within Normal Limits Respirations: Appears Normal Skin to Skin: Yes Skin to Skin Time (min): 0 Spanish Medical Interpreter/ALS Called : No Care By: LouiseKodak Robert RN Transferred To: Remains with Mother BABY B INFORMATION : N/A SIGNATURES Signature: with User ID: [email or web address]
[2017-04-04] MEDS: IBUPROFEN 800 MG TABLET PO SCH ×2 (13:58→21:32)
[2017-04-04 23:01] LABS: APPEARANCE,URINE CLEAR; BILIRUBIN,URINE NEGATIVE (NEGATIVE); COLOR,URINE YELLOW; GLUCOSE, URINE NEGATIVE (NEGATIVE); KETONES,URINE NEGATIVE (NEGATIVE); LEUKOCYTE ESTERASE,URINE TRACE (NEGATIVE); NITRITE,URINE NEGATIVE (NEGATIVE); PROTEIN,URINE NEGATIVE (NEGATIVE); URINE SPECIFIC GRAVITY 1.004; UROBILINOGEN,URINE NEGATIVE mg/dL (<2.0)
[2017-04-04 23:13] LABS: URINE AMPHETAMINES SCREEN NEGATIVE; URINE BARBITURATES SCREEN NEGATIVE; URINE BENZODIAZEPINES SCREEN NEGATIVE; URINE COCAINE SCREEN NEGATIVE; URINE METHADONE SCREEN NEGATIVE; URINE PHENCYCLIDINE SCREEN NEGATIVE
[2017-04-04 23:19] LABS: URINE MARIJUANA (THC) SCREEN UNCONFIRMED POSITIVE
[2017-04-05] MEDS: IBUPROFEN 800 MG TABLET PO SCH ×3 (06:40→22:37)
[2017-04-05 07:54] LABS: HEMATOCRIT 35.1 % (36.0-47.0); HEMOGLOBIN 11.7 g/dL (12.0-15.5); MEAN CORPUSCULAR HEMOGLOBIN 28.1 pg (27.0-33.4); MEAN CORPUSCULAR HGB CONC 33.3 g/dL (32.0-36.0); MEAN CORPUSCULAR VOLUME 84 fl (80-97); PLATELET COUNT 188 10^3/uL (150-450); RED BLOOD COUNT 4.17 10^6/uL (3.72-5.28); WHITE BLOOD COUNT 11.7 10^3/uL (4.0-10.5)
[2017-04-05] MEDS: FAMOTIDINE 20 MG TABLET PO SCH ×2 (10:22→22:37)
[2017-04-05] MEDS: SENNOSIDES/DOCUSATE 8.6-50 MG 1 EACH TABLET PO SCH (10:22)
[2017-04-05] MEDS: DOCUSATE SODIUM 100 MG CAPSULE PO SCH ×2 (10:22→17:46)
[2017-04-05] MEDS: FERROUS SULFATE 325 MG TABLET PO SCH ×2 (10:23→17:46)
[2017-04-05] MEDS: PRENATAL VITAMIN W DHA CAPSULE PO SCH (10:23)
--- NOTE | 2017-04-05 10:31 | PDOC PROGRESS REPORT ---
Subjective-OB Subjective: Post Delivery Day: 31 year old. Denies any needs at this time bonding well with after hearing screen pt visibly upset after having a bridge operator outside her room pt denies any suicidal or homicidal ideation no concerns at this time ff@u-s mild lochia discontinue bridge operator at this time Physical Exam (OB) Vital Signs: Temp Pulse Resp BP Pulse Ox 97.8 F 66 16 108/71 100 04/05/17 07:53 04/05/17 07:53 04/05/17 07:53 04/05/17 07:53 04/05/17 07:53 Intake & Output 04/04/17 04/05/17 04/06/17 06:59 06:59 06:59 Weight 81 kg - PIH/Pre-Eclampsia Clonus: Negative Headache: Absent Epigastric Pain: No Visual Changes: No - Lochia Lochia Amount: Small 10-25 ml Lochia Color: Rubra/Red - Abdomen Description: Soft, Round Hernia Present: No Fundal Description: Firm, Midline Fundal Height: u/u - u/2 Objective-Diagnostic Laboratory: 04/05/17 07:20 04/04/17 04/04/17 04/05/17 07:22 20:30 07:20 WBC 11.7 H RBC 4.17 Hgb 11.7 L Hct 35.1 L MCV 84 MCH 28.1 MCHC 33.3 RDW 14.0 Plt Count 188 Urine Color YELLOW Urine Appearance CLEAR Urine pH 6.0 Ur Specific Pound 1.004 Urine Protein NEGATIVE Urine Glucose (UA) NEGATIVE Urine Ketones NEGATIVE Urine Blood LARGE H Urine Nitrite NEGATIVE Ur Leukocyte Esterase TRACE H Urine WBC (Auto) 12 Urine RBC (Auto) 46 Blood Type A NEGATIVE Antibody Screen POSITIVE
[2017-04-06] MEDS: IBUPROFEN 800 MG TABLET PO SCH ×2 (06:00→13:12)
[2017-04-06 08:36] VITALS: BP 117/79
--- NOTE | 2017-04-06 10:04 | PDOC PROGRESS REPORT ---
Subjective-OB Subjective: Post Delivery Day: 31 year old. Denies any needs at this time d/c once DSS has seen pt. ff@u-1 mild lochia no concerns denies SI/HI bonding well with baby- no longer d/c home f/u 4 weeks Physical Exam (OB) Vital Signs: Temp Pulse Resp BP Pulse Ox 98.3 F 80 15 117/79 100 04/06/17 07:41 04/06/17 07:41 04/06/17 07:41 04/06/17 07:41 04/06/17 07:41 Intake & Output 04/05/17 04/06/17 04/07/17 06:59 06:59 06:59 Intake Total 1340 Output Total 3 Balance 1337 Weight 81 kg - PIH/Pre-Eclampsia DTR's: 2 + Clonus: Negative Headache: Absent Epigastric Pain: No Visual Changes: No - Lochia Lochia Amount: Scant < 10 ml Lochia Color: Rubra/Red - Abdomen Description: Tender, Soft Hernia Present: No Fundal Description: Firm, Midline Fundal Height: u/u - u/2 Objective-Diagnostic Laboratory: 04/05/17 07:20 04/05/17 07:20 Blood Type A NEGATIVE
--- NOTE | 2017-04-06 10:06 | PDOC DISCHARGE SUMMARY ---
Final Diagnosis Discharge Date: 04/06/17 - Final Diagnosis (1) Delivery normal Is this a current diagnosis for this admission?: Yes Discharge Data - Discharge Medication Home Medications: No Home Medications 04/04/17 Reason(s) for Admission: Onset of Labor Intrapartum Procedure(s): Spontaneous Vaginal Delivery - Diagnosis Test Laboratory: Temp Pulse Resp BP Pulse Ox 98.3 F 80 15 117/79 100 04/06/17 07:41 04/06/17 07:41 04/06/17 07:41 04/06/17 07:41 04/06/17 07:41 04/04/17 04/04/17 04/05/17 07:22 20:30 07:20 RBC 4.73 4.17 Hgb 13.2 11.7 L Hct 40.2 35.1 L Urine Opiates Screen UNCONFIRMED POSITIVE - Discharge information/Instructions Discharge Activity: Activity As Tolerated Discharge Diet: Regular Disposition: HOME, SELF-CARE Follow up with: [facility] in: 4
[2017-04-06] MEDS: SENNOSIDES/DOCUSATE 8.6-50 MG 1 EACH TABLET PO SCH (10:11)
[2017-04-06] MEDS: PRENATAL VITAMIN W DHA CAPSULE PO SCH (10:11)
[2017-04-06] MEDS: FAMOTIDINE 20 MG TABLET PO SCH (10:11)
[2017-04-06] MEDS: DOCUSATE SODIUM 100 MG CAPSULE PO SCH (10:11)
[2017-04-06] MEDS: FERROUS SULFATE 325 MG TABLET PO SCH (10:11)
== END 2017-04-06 16:40 | disposition home or self-care (01) | DRG 775 ==
LOC: EDSTATUS 07:02 → LC 07:06 → LR 07:21 → 2N 10:30
PROVIDERS: ADMIT Obstetrics & Gynecology; ATTEND Obstetrics & Gynecology
PROC: 10E0XZZ Delivery of Products of Conception, External Approach (ICD-10-PCS; principal; 2017-04-04)
PROC: 4A1HXCZ Monitoring of Products of Conception, Cardiac Rate, External Approach (ICD-10-PCS; 2017-04-04)
PROC: 3E0234Z Introduction of Serum, Toxoid and Vaccine into Muscle, Percutaneous Approach (ICD-10-PCS; 2017-04-04)
DX: O99.824 Streptococcus B carrier state complicating childbirth (principal); O99.324 Drug use complicating childbirth; O26.893 Other specified pregnancy related conditions, third trimester; F12.10 Cannabis abuse, uncomplicated; Z67.11 Type A blood, Rh negative; Z3A.38 38 weeks gestation of pregnancy; Z37.0 Single live birth
CPT/HCPCS: 36415; 80307; 81001; 85025; 85027; 85461; 86592; 86850; 86870; 86900; 86901; 88307; 94760; J2590; J2790; J3490

== ENCOUNTER 2019-01-21 10:11 | Outpatient (CLI) | payer MEDICAID ==
[2019-01-21 10:46] LABS: BACTERIA (WET MOUNT) 4+ BACTERIA SEEN; EPITHELIALS (WET MOUNT) 4+ EPITHELIALS SEEN; T.VAGINALIS (WET MOUNT) NO TRICHOMONAS SEEN; WBCS (WET MOUNT) FEW WBCS SEEN; YEAST (WET MOUNT) NO YEAST SEEN
[2019-01-21 11:34] LABS: APPEARANCE,URINE SLIGHTLY-CLOUDY; BILIRUBIN,URINE NEGATIVE (NEGATIVE); COLOR,URINE YELLOW; GLUCOSE, URINE NEGATIVE (NEGATIVE); KETONES,URINE NEGATIVE (NEGATIVE); LEUKOCYTE ESTERASE,URINE NEGATIVE (NEGATIVE); NITRITE,URINE NEGATIVE (NEGATIVE); PROTEIN,URINE NEGATIVE (NEGATIVE); URINE SPECIFIC GRAVITY 1.019; UROBILINOGEN,URINE NEGATIVE mg/dL (<2.0)
[2019-01-21 12:11] LABS: CHLAM PCR NOT DETECTED (NOT DETECT)
[2019-01-21 12:16] LABS: ABSOLUTE BASOPHILS # (AUTO) 0.1 10^3/uL (0.0-0.2); ABSOLUTE EOSINOPHILS # (AUTO) 0.1 10^3/uL (0.0-0.6); ABSOLUTE LYMPHOCYTES (AUTO) 2.5 10^3/uL (0.5-4.7); ABSOLUTE MONOCYTES (AUTO) 0.5 10^3/uL (0.1-1.4); ABSOLUTE NEUT (AUTO) 9.5 10^3/uL (1.7-8.2); BASOPHILS % (AUTO) 0.8 % (0-2); EOSINOPHILS % (AUTO) 0.6 % (0-6); HEMATOCRIT 39.1 % (36.0-47.0); HEMOGLOBIN 13.2 g/dL (12.0-15.5); LYMPHOCYTES % (AUTO) 19.5 % (13-45); MEAN CORPUSCULAR HEMOGLOBIN 29.3 pg (27.0-33.4); MEAN CORPUSCULAR HGB CONC 33.7 g/dL (32.0-36.0); MEAN CORPUSCULAR VOLUME 87 fl (80-97); MONOCYTES % (AUTO) 3.9 % (3-13); PLATELET COUNT 288 10^3/uL (150-450); RED BLOOD COUNT 4.49 10^6/uL (3.72-5.28); SEGMENTED NEUTROPHILS % (AUTO) 75.2 % (42-78); TOTAL CELLS COUNTED % (AUTO) 100 %; WHITE BLOOD COUNT 12.6 10^3/uL (4.0-10.5)
--- NOTE | 2019-01-21 12:16 | RADIOLOGY REPORT (SQ) ---
EXAM DESCRIPTION: U/S OB 14+ TRNABD 1GES W/O DOP COMPLETED DATE/TIME: 01/21/2019 11:51 am REASON FOR STUDY: No care labs COMPARISON: None. TECHNIQUE: Static and Dynamic grayscale imaging performed of gravid uterus using transabdominal appr oac. Additional selected color Doppler and spectral images recorded. All stored on PACS. LIMITATIONS: None. FINDINGS: FETUSES SEEN:1 EGA: 26 weeks 6 days Calculated using BPD,FL,HC,AC documented on images. No discrepancy with clinica l dates. MAGGI: 04/23/2019 EFW: 1,026 grams PERCENTILE: Not calculated. MK: 19.3 PLACENTA: Anterior. GRADE: II PRESENTATION: Breech. ANATOMY: HEART RATE: 158 beats per minute. FOUR CHAMBER HEART: Visualized. THREE VESSEL CORD: Yes. CORD INSERTION: Visualized. KIDNEYS AND BLADDER: Visualized. Appear normal. STOMACH: Visualized. Appears normal. SPINE: Normal as visualized. BRAIN AND LATERAL VENTRICLES: Visualized. Appear normal. OTHER: No other significant finding. MATERNAL ADNEXA: Maternal ovaries not visualized. CERVICAL LENGTH: 3.2 cm. Closed. OTHER: No other significant finding. IMPRESSION: LIVING INTRAUTERINE . ESTIMATED GESTATIONAL AGE 26 weeks 6 days NO VISUALIZED ANOMALIES. Trimester of : Second trimester - 13 weeks 1 day to 27 weeks 6 days. TECHNICAL DOCUMENTATION: JOB ID: [id number] [employer]- All Rights Reserved Reading location - IP/workstation name: [email or web address]
[2019-01-21 12:18] LABS: URINE AMPHETAMINES SCREEN NEGATIVE; URINE BARBITURATES SCREEN NEGATIVE; URINE BENZODIAZEPINES SCREEN NEGATIVE; URINE COCAINE SCREEN NEGATIVE; URINE METHADONE SCREEN NEGATIVE; URINE PHENCYCLIDINE SCREEN NEGATIVE
[2019-01-21 13:21] LABS: URINE MARIJUANA (THC) SCREEN UNCONFIRMED POSITIVE
[2019-01-22 08:37] LABS: HEPATITIS C VIRUS AB <0.1 s/co ratio (0.0-0.9)
[2019-01-22 14:19] LABS: HEPATITS B SURFACE ANTIGEN Negative (Negative)
== END 2019-01-21 13:40 | disposition home or self-care (01) ==
LOC: LC 10:11
PROVIDERS: ATTEND Student in an Organized Health Care Education/Training Program
PROC: 4A1HXCZ Monitoring of Products of Conception, Cardiac Rate, External Approach (ICD-10-PCS; principal; 2019-01-21)
DX: O09.32 Supervision of pregnancy with insufficient antenatal care, second trimester (principal); Z3A.26 26 weeks gestation of pregnancy
CPT/HCPCS: 59899; 86900; 86901; 36415; 87210; 86850; 85025; 86762; 86592; 81001; 87081; 87340; 86701; 80307; 87491; 87591; 86803; 86804; 76805; J2790; G0480 ×2; 80349

== ENCOUNTER 2019-03-26 09:58 | Outpatient (CLI) | payer MEDICAID ==
[2019-03-26 10:41] LABS: APPEARANCE,URINE SLIGHTLY-CLOUDY; BILIRUBIN,URINE NEGATIVE (NEGATIVE); COLOR,URINE YELLOW; GLUCOSE, URINE NEGATIVE (NEGATIVE); KETONES,URINE NEGATIVE (NEGATIVE); PROTEIN,URINE NEGATIVE (NEGATIVE); URINE SPECIFIC GRAVITY 1.014; UROBILINOGEN,URINE NEGATIVE mg/dL (<2.0)
[2019-03-26 10:59] LABS: URINE AMPHETAMINES SCREEN NEGATIVE; URINE BARBITURATES SCREEN NEGATIVE; URINE BENZODIAZEPINES SCREEN NEGATIVE; URINE COCAINE SCREEN NEGATIVE; URINE METHADONE SCREEN NEGATIVE; URINE PHENCYCLIDINE SCREEN NEGATIVE
[2019-03-26 11:01] LABS: URINE MARIJUANA (THC) SCREEN UNCONFIRMED POSITIVE
--- NOTE | 2019-03-26 11:56 | Non Stress Test Report ---
Non Stress Test Datetime Report Generated by CPN: 03/26/2019 11:56 DEMOGRAPHIC Test Number: 1 EGA NST: 36.0 INDICATION Indication for Study (NST) Other: Ordered by provider labor check VITAL SIGNS Temperature - NST: 97.7 Pulse - NST: 77 RESP - NST: 18 NBPSYS NST: 108 NBPDIA NST: 60 MONITORING Monitor Explained: Monitor Explained; Test Explained; Patient Verbalized Understanding Time on Monitor: 03/26/2019 10:23 Time off Monitor: 03/26/2019 11:54 NST Duration: 91 NST INTERVENTIONS NST Interventions: PO Hydration Physician Notified NST: KKodak Almeida, CNM Physician Notified NST: K Almeida BABY A: [id number] BABY A Movement : Present Contraction Frequency : occasional FHR Baseline : 135 Accelerations : 15X15 Decelerations : None Variability : Moderate 6-25bpm NST Review: Meets Criteria for Reactive NST NST Review and Verified By : Asia Adamson RN NST Results: Reactive NST REPORT Report Trigger: Send Report
== END 2019-03-26 12:05 | disposition home or self-care (01) ==
LOC: LC 09:58
PROVIDERS: ATTEND Obstetrics & Gynecology
PROC: 4A1HXCZ Monitoring of Products of Conception, Cardiac Rate, External Approach (ICD-10-PCS; principal; 2019-03-26)
DX: O26.893 Other specified pregnancy related conditions, third trimester (principal); Z3A.35 35 weeks gestation of pregnancy
CPT/HCPCS: 59025; 81001; 80307; G0480 ×2; 80349

== ENCOUNTER 2019-04-09 06:25 | Outpatient (CLI) | payer MEDICAID ==
[2019-04-09 07:03] LABS: APPEARANCE,URINE CLOUDY; BILIRUBIN,URINE NEGATIVE (NEGATIVE); COLOR,URINE YELLOW; GLUCOSE, URINE NEGATIVE (NEGATIVE); KETONES,URINE NEGATIVE (NEGATIVE); LEUKOCYTE ESTERASE,URINE LARGE (NEGATIVE); NITRITE,URINE NEGATIVE (NEGATIVE); PROTEIN,URINE NEGATIVE (NEGATIVE); URINE SPECIFIC GRAVITY 1.004; UROBILINOGEN,URINE NEGATIVE mg/dL (<2.0)
[2019-04-09] MEDS ORDERED: ONDANSETRON HCL INJ/PF 4 MG/2 ML SDV ONE (07:40)
[2019-04-09 07:48] LABS: URINE AMPHETAMINES SCREEN NEGATIVE; URINE BARBITURATES SCREEN NEGATIVE; URINE BENZODIAZEPINES SCREEN NEGATIVE; URINE COCAINE SCREEN NEGATIVE; URINE METHADONE SCREEN NEGATIVE; URINE PHENCYCLIDINE SCREEN NEGATIVE
[2019-04-09 07:55] LABS: URINE MARIJUANA (THC) SCREEN UNCONFIRMED POSITIVE
--- NOTE | 2019-04-09 09:28 | Non Stress Test Report ---
Non Stress Test Datetime Report Generated by CPN: 04/09/2019 09:28 DEMOGRAPHIC EGA NST: 38.0 INDICATION Indication for Study (NST) Other: Contractions, Over 32 weeks MONITORING Monitor Explained: Monitor Explained; Test Explained; Patient Verbalized Understanding Time on Monitor: 04/09/2019 06:38 Time off Monitor: 04/09/2019 09:20 NST Duration: 162 NST INTERVENTIONS NST Interventions: None Physician Notified NST: A Dowell CNm BABY A: [id number] BABY A Movement : Present Contraction Frequency : 5-9, irritibility FHR Baseline : 140 Accelerations : 15X15 Decelerations : None Variability : Moderate 6-25bpm NST Review: Meets Criteria for Reactive NST NST Review and Verified By : Denia Camp RNC NST Results: Reactive NST REPORT Report Trigger: Send Report
== END 2019-04-09 09:30 | disposition home or self-care (01) ==
LOC: LC 06:25
PROVIDERS: ATTEND Obstetrics & Gynecology Gynecology
PROC: 4A1HXCZ Monitoring of Products of Conception, Cardiac Rate, External Approach (ICD-10-PCS; principal; 2019-04-09)
DX: O47.1 False labor at or after 37 completed weeks of gestation (principal); Z3A.38 38 weeks gestation of pregnancy
CPT/HCPCS: 59025; 81005; 80307; G0480 ×2; 80349; J2405

== ENCOUNTER 2019-04-19 07:44 | Inpatient (IN) | payer MEDICAID ==
[2019-04-19 08:20] LABS: APPEARANCE,URINE SLIGHTLY-CLOUDY; BILIRUBIN,URINE NEGATIVE (NEGATIVE); COLOR,URINE YELLOW; GLUCOSE, URINE NEGATIVE (NEGATIVE); KETONES,URINE NEGATIVE (NEGATIVE); LEUKOCYTE ESTERASE,URINE SMALL (NEGATIVE); NITRITE,URINE NEGATIVE (NEGATIVE); PROTEIN,URINE NEGATIVE (NEGATIVE); URINE SPECIFIC GRAVITY 1.012; UROBILINOGEN,URINE NEGATIVE mg/dL (<2.0)
[2019-04-19 08:36] LABS: URINE AMPHETAMINES SCREEN NEGATIVE; URINE BARBITURATES SCREEN NEGATIVE; URINE BENZODIAZEPINES SCREEN NEGATIVE; URINE COCAINE SCREEN NEGATIVE; URINE METHADONE SCREEN NEGATIVE; URINE PHENCYCLIDINE SCREEN NEGATIVE
[2019-04-19 08:41] LABS: URINE MARIJUANA (THC) SCREEN UNCONFIRMED POSITIVE
--- NOTE | 2019-04-19 08:59 | Admission Physical ---
Datetime Report Generated by CPN: 04/19/2019 08:59 CURRENT ADMISSION Chief Complaint: Uterine Contractions Indication for Induction: Not Applicable Admit Impression : Term, Intrauterine ; Active Labor Admit Plan: Admit to Unit; Initiate Labor Protocol ALLERGIES Medication Allergies: Yes Medication Allergies: oxycodone HCl/MO/Hives (04/09/2019); sumatriptan succinate/MO/Hives (04/09/2019); sumatriptan/MO/Hives (04/09/2019) Latex: No Latex Allergies Food Allergies: none Environmental Allergies: None OBSTETRICAL HISTORY EDC: 04/23/2019 00:00 : 8 Para: 5 Term: 5 : 0 SAB: 2 Livin Cesareans: 0 Gestational Diabetes: No Rh Sensitization: No Incompetent Cervix: No JANIE: No Infertility: No ART Treatment: No Uterine Anomaly: No IUGR: No Hx Previous C/S: No Macrosomia: No Hx Loss/Stillborn: No PIH: No Hx : No Placenta Previa/Abruption: No Depression/PP Depression: No PTL/PROM: No Post Hemorrhage: No Current Procedures: Ultrasound; NST Obstetrical History Comments: G1- 2005 baby girl G2- 2008 baby boy G3- 2010 baby boy G4- 2014 SAB 2014 baby boy - 2016 SAB 2016 baby boy G8- current Limited PNC SEE RECORDS Alcohol: No Marijuana : No Cocaine: No Other Illicit Drugs: No Cigarettes: Never Smoker. [id number] MEDICAL HISTORY Diabetes: No Blood Transfusion: No Pulmonary Disease (Asthma, TB): No Breast Disease: No Hypertension: No Security Shift Manager Surgery: No Heart Disease: No Hosp/Surgery: No Autoimmune Disorder: No Anesthetic Complications: No Kidney Disease: No Abnormal Pap Smear: No Neuro/Epilepsy: No Psychiatric Disorders: No Other Medical Diseases: No Hepatitis/Liver Disease: No Significant Family History: No Varicosities/Phlebitis: No Trauma/Violence : No Thyroid Dysfunction: No INFECTIOUS HISTORY Gonorrhea: No Genital Herpes: No Chlamydia: No Tuberculosis: No Syphilis: No Hepatitis: No HIV/AIDS Exposure: No Rash or Viral Illness: No HPV: No PHYSICAL EXAM General: Normal HEENT: Normal Neurologic: Normal Thyroid: Deferred Heart: Normal Lungs: Normal Breast: Deferred Back: Normal Abdomen: Normal Genitourinary Exam: Normal Extremities: Normal DTRs: Deferred Pelvic Type: Adequate Physical Exam Comments: pelvis proven to 7#11 Vital Signs: Reviewed; Within Normal Limits VAGINAL EXAM Dilatation: 5 Effacement: 80 Station: -1 Contraction Comments: Q4 mins MEMBRANES Pooling: Negative Membranes: Intact FETUS A EGA: 39.3 Monitoring: External US FHR- Baseline: 145 Variability: Moderate 6-25bpm Accelerations: 15X15 Decelerations: None Estimated Weight (gm): 3200 Admit Comment: at 39 weeks with contractions, GBS negative, late and limited PNC. presents with contractions. PL admit, routine labor care, anticipate PLANS FOR LABOR AND DELIVERY Labor and Delivery: None Pain Management: Epidural Feeding Preference: Formula Circumcision: N/A INFORMED CONSENT Assignment: Shannan Hardy MD Signature: with User ID: [email or web address] : with User ID: [email or web address]
[2019-04-19] MEDS ORDERED: RINGERS SOLUTION,LACTATED 1,000 ML IV ONE (09:03)
[2019-04-19] MEDS: RINGERS SOLUTION,LACTATED 1,000 ML IV PRN ×3 (09:23→12:48)
[2019-04-19] MEDS ORDERED: OXYTOCIN/NORMAL SALINE 20 UNIT/1,000 ML RTUINJ ONE (09:56)
[2019-04-19] MEDS ORDERED: MISOPROSTOL 0.2 MG TABLET ONE (09:56)
[2019-04-19] MEDS ORDERED: OXYTOCIN 10 UNIT/ML VIAL ONE (09:56)
[2019-04-19] MEDS ORDERED: LIDOCAINE 1% INJ-PF (10 MG/ML) 30 ML SDV ONE (09:56)
--- NOTE | 2019-04-19 10:25 | Warning Signs in Babies ---
VOD Warning Signs Datetime Report Generated by N: 04/19/2019 10:25 VOD#608 -Warning Signs in Babies: Viewed with Parent(s)/Family (04/19/2019 10:24:Abe Alarcon RN)
[2019-04-19] MEDS ORDERED: FENTANYL CITRATE INJ/PF 100 MCG/2 ML AMPUL ONE (10:53)
[2019-04-19] MEDS ORDERED: EPHEDRINE SULFATE INJ 50 MG/1 ML AMPULE ONE (10:53)
[2019-04-19] MEDS ORDERED: BUPIVACAINE HCL 0.25 % INJ/PF (2.5 MG/1 ML) 30 ML VIAL ONE (10:54)
[2019-04-19] MEDS ORDERED: FENTANYL/BUPIVACAINE/NS/PF 300 MCG/150 ML RTUINJ EPI ONE (10:54)
[2019-04-19 11:00] LABS: ABSOLUTE BASOPHILS # (AUTO) 0.1 10^3/uL (0.0-0.2); ABSOLUTE EOSINOPHILS # (AUTO) 0.2 10^3/uL (0.0-0.6); ABSOLUTE LYMPHOCYTES (AUTO) 2.2 10^3/uL (0.5-4.7); ABSOLUTE MONOCYTES (AUTO) 0.5 10^3/uL (0.1-1.4); ABSOLUTE NEUT (AUTO) 9.4 10^3/uL (1.7-8.2); BASOPHILS % (AUTO) 0.5 % (0-2); EOSINOPHILS % (AUTO) 1.8 % (0-6); HEMATOCRIT 37.1 % (36.0-47.0); HEMOGLOBIN 12.4 g/dL (12.0-15.5); MEAN CORPUSCULAR HEMOGLOBIN 27.4 pg (27.0-33.4); MEAN CORPUSCULAR HGB CONC 33.4 g/dL (32.0-36.0); MEAN CORPUSCULAR VOLUME 82 fl (80-97); PLATELET COUNT 227 10^3/uL (150-450); RED BLOOD COUNT 4.52 10^6/uL (3.72-5.28); RED CELL DISTRIBUTION WIDTH 15.9 % (11.5-14.0); SEGMENTED NEUTROPHILS % (AUTO) 75.7 % (42-78); TOTAL CELLS COUNTED % (AUTO) 100 %; WHITE BLOOD COUNT 12.4 10^3/uL (4.0-10.5)
[2019-04-19] MEDS ORDERED: OXYTOCIN/NORMAL SALINE 20 UNIT/1,000 ML RTUINJ IV PRN ×2 (14:47→16:16)
[2019-04-19] MEDS ORDERED: MEPERIDINE HCL/PF INJ 25 MG/1 ML DISP.SYRIN ONE (15:51)
[2019-04-19] MEDS ORDERED: PROMETHAZINE HCL 25 MG TABLET PO PRN (16:16)
[2019-04-19] MEDS ORDERED: PSEUDOEPHEDRINE HCL 30 MG TABLET PO PRN (16:16)
[2019-04-19] MEDS ORDERED: PROMETHAZINE HCL INJ 25 MG/1 ML VIAL IV PRN (16:16)
[2019-04-19] MEDS ORDERED: DIPHENHYDRAMINE HCL 25 MG CAPSULE PO PRN (16:16)
[2019-04-19] MEDS ORDERED: DIBUCAINE 1% OINTMENT 28 GM TP PRN (16:16)
[2019-04-19] MEDS ORDERED: DIPH/PERTUSS(ACELL)/TETANUS VAC/PF 0.5 ML SYR (>=10YO) IM PRN (16:16)
[2019-04-19] MEDS ORDERED: ACETAMINOPHEN 650 MG SUPP.RECT PR PRN (16:16)
[2019-04-19] MEDS ORDERED: ACETAMINOPHEN WITH CODEINE #3 TABLET PO PRN ×2 (16:16)
[2019-04-19] MEDS ORDERED: PROMETHAZINE HCL 25 MG SUPP.RECT PR PRN (16:16)
[2019-04-19] MEDS ORDERED: MEASLES,MUMPS&RUBELLA VACC/PF 0.5 ML VIAL SUBCUT PRN (16:16)
[2019-04-19] MEDS ORDERED: NA PHOS,M-B/NA PHOS,DI-BA (ADULT) 133 ML ENEMA PR PRN (16:16)
[2019-04-19] MEDS ORDERED: BENZOCAINE/MENTHOL AEROSOL SPRAY 56 ML TOP PRN (16:16)
[2019-04-19] MEDS ORDERED: GLYCERIN/WITCH HAZEL LEAF 1 EACH MED..WIPE TP PRN (16:16)
[2019-04-19] MEDS ORDERED: MAGNESIUM HYDROXIDE SUSP 30 ML UDCUP PO PRN (16:16)
[2019-04-19] MEDS ORDERED: ZOLPIDEM TARTRATE 5 MG TABLET PO PRN (16:16)
--- NOTE | 2019-04-19 17:12 | Delivery Summary ---
Del Sum A-C Datetime Report Generated by CPN: 04/19/2019 17:12 DELIVERY PERSONNEL DELIVERY PERSONNEL: [id number] Delivery Doctor:: Shannan Hardy MD Labor and Delivery Nurse:: Abe Alarcon RNkettle skimmer Nurse:: Radha Adamson RN Nursery Nurse:: Sherry Bob RN Brooch And Bracelet Maker/CQ DEVELOPER: Carolee Mratínez, ANGLE DOZER OPERATOR MATERNAL INFORMATION Delivery Anesthesia: Epidural Medications After Delivery: Pitocin Bolus-Please Comment; Pitocin Drip 20 Units/1000ml NSS Meds After Delivery Comment: 20 units pitocin/1000ml NS Estimated Blood Loss (ml): 200 Delivery QBL: 250 Maternal Complications: Precipitous Labor (<3hrs) Provider Comments: [place] face presentation converted via head flexion and delivery in OP presentation. Fetus tolerated well. Apgars 8/9 LABOR SUMMARY EDC: 04/23/2019 00:00 No. Babies in Womb: 1 Attempted: No Labor Anesthesia: Epidural LABOR INFORMATION Reason for Induction: Not Applicable Onset of Labor: 04/19/2019 13:02 Complete Dilatation: 04/19/2019 15:29 Oxytocin: Augmentation Group B Beta Strep: 1 NO GROUP B STREPTOCOCCUS RECOVERED Antibiotics # of Doses: 0 Antibiotics Time of Last Dose: n/a Name of Antibiotic Given: n/a Steroids Given: None Reason Steroids Not Administered: Not Applicable MEMBRANES Membranes Rupture Method: Artificial Rupture of Membranes: 04/19/2019 13:02 Length of Rupture (hr): 2.78 Amniotic Fluid Color: Clear Amniotic Fluid Amount: Copious Amniotic Fluid Odor: Normal STAGES OF LABOR Stage 1 hr: 2 Stage 1 min: 27 Stage 2 hr: 0 Stage 2 min: 20 Stage 3 hr: 0 Stage 3 min: 3 Total Time in Labor hr: 2 Total Time in Labor min: 50 VAGINAL DELIVERY Episiotomy: None Laceration #1: None Laceration Extension #1: N/A Laceration Repair: Not Applicable BABY A INFORMATION Infant Delivery Date/Time: 04/19/2019 15:49 Method of Delivery: Vaginal Born in Route : No : N/A Forceps: N/A Vacuum Extraction: N/A Shoulder Dystocia : No PRESENTATION/POSITION BABY A Presentation: Cephalic Cephalic Presentation: Vertex Vertex Position: Direct OP Breech Presentation: N/A PLACENTA INFORMATION BABY A Placenta Delivery Time : 04/19/2019 15:52 Placenta Method of Delivery: Spontaneous Placenta Status: Delivered SCORES BABY A Heart Rate 1 min: >100 bpm Resp Effort 1 min: Good Cry Reflex Irritability 1 min: Cough or Sneeze or Pulls Away Muscle Tone 1 min: Some Flexion of Extremities Color 1 min: Body Olivarez, Extremities Blue Resuscitation Effort 1 min: Tactile Stimulation SCORE 1 MIN: 8 Heart Rate 5 min: >100 bpm Resp Effort 5 min: Good Cry Reflex Irritability 5 min: Cough or Sneeze or Pulls Away Muscle Tone 5 min: Active Motion Color 5 min: Body Olivarez, Extremities Blue Resuscitation Effort 5 min: N/A SCORE 5 MIN: 9 INFORMATION BABY A Gestational Age at Delivery: 39.3 Gestational Status: Full Term- 39- 40.6 Weeks Infant Outcome : Liveborn Condition : Stable Sex: Female IDENTIFICATION BABY A Verification Date/Time: 04/19/2019 16:36 ID Band Number: [id number] Mother's Name Verified: Yes Infant RN Verifying Infant: ARVIN Parsons Additional Verifying Personnel: US Tiffani WEIGHT/LENGTH BABY A Birthweight (gm): 3457 Weight (lb): 7 Infant Weight (oz): 10 Infant Length (in): 21.00 Length (cm): 53.34 CORD INFORMATION BABY A No. Cord Vessels: 3 Nuchal Cord : N/A Cord Blood Taken: Yes-For Eval (Mom's Blood Type - or O+) Infant Suction: None ASSESSMENT BABY A Skin to Skin: Yes BABY B INFORMATION : N/A SIGNATURES Signature: with User ID: Mariah : Nicolasa was personally available for consultation and serving as supervising physician for the P.
[2019-04-19] MEDS ORDERED: BENZOCAINE/MENTHOL AEROSOL SPRAY 56 ML ONE (17:32)
[2019-04-19] MEDS: FERROUS SULFATE 325 MG TABLET PO SCH (18:06)
[2019-04-19] MEDS: DOCUSATE SODIUM 100 MG CAPSULE PO SCH (18:06)
[2019-04-19] MEDS: IBUPROFEN 800 MG TABLET PO SCH (22:34)
[2019-04-19] MEDS: FAMOTIDINE 20 MG TABLET PO SCH (22:34)
[2019-04-20] MEDS: IBUPROFEN 800 MG TABLET PO SCH ×3 (06:17→21:59)
[2019-04-20 07:07] LABS: HEMATOCRIT 31.8 % (36.0-47.0); HEMOGLOBIN 10.8 g/dL (12.0-15.5); MEAN CORPUSCULAR HEMOGLOBIN 27.5 pg (27.0-33.4); MEAN CORPUSCULAR HGB CONC 33.8 g/dL (32.0-36.0); MEAN CORPUSCULAR VOLUME 81 fl (80-97); PLATELET COUNT 215 10^3/uL (150-450); RED BLOOD COUNT 3.92 10^6/uL (3.72-5.28); RED CELL DISTRIBUTION WIDTH 15.9 % (11.5-14.0); WHITE BLOOD COUNT 13.1 10^3/uL (4.0-10.5)
--- NOTE | 2019-04-20 08:49 | PDOC PROGRESS REPORT ---
Subjective-OB Progress Note for:: 04/20/19 Subjective: Doing well, no c/o, bottle feeding, visiting with another patient, no c/o Physical Exam (OB) Vital Signs: Temp Pulse Resp BP Pulse Ox 97.6 F 68 17 119/72 100 04/20/19 07:24 04/20/19 07:24 04/20/19 07:24 04/20/19 07:24 04/20/19 07:24 Intake & Output 04/19/19 04/20/19 04/21/19 06:59 06:59 06:59 Intake Total 427 Balance 427 Weight 88.2 kg - Lochia Lochia Amount: Small 10-25 ml Lochia Color: Rubra/Red - Abdomen Description: Soft, Round Hernia Present: No Fundal Description: Boggy, Midline Describe if Not Midline: massaged fundus Fundal Height: u/u - u/2 Objective-Diagnostic Laboratory: 04/20/19 06:42 04/19/19 04/19/19 04/20/19 10:30 10:30 06:42 WBC 12.4 H 13.1 H RBC 4.52 3.92 Hgb 12.4 10.8 L Hct 37.1 31.8 L MCV 82 81 MCH 27.4 27.5 MCHC 33.4 33.8 RDW 15.9 H 15.9 H Plt Count 227 215 Seg Neutrophils % 75.7 Blood Type A NEGATIVE Antibody Screen NEGATIVE Assessment and Plan(PN) - Assessment and Plan (1) Late care Is this a current diagnosis for this admission?: Yes (2) Rh negative status during Qualifiers: Trimester: first trimester Qualified Code(s): O26.891 - Other specified related conditions, first trimester; Z67.91 - Unspecified blood type, Rh negative Is this a current diagnosis for this admission?: Yes (3) Delivery normal Is this a current diagnosis for this admission?: Yes - Time Spent with Patient Time with patient: Less than 15 minutes Medications reviewed and adjusted accordingly: Yes - Disposition Anticipated Discharge: Home Within: within 24 hours
[2019-04-20] MEDS: FAMOTIDINE 20 MG TABLET PO SCH ×2 (09:11→21:59)
[2019-04-20] MEDS: PRENATAL VITAMIN W DHA CAPSULE PO SCH ×2 (09:11→09:29)
[2019-04-20] MEDS: FERROUS SULFATE 325 MG TABLET PO SCH ×3 (09:12→17:48)
[2019-04-20] MEDS: DOCUSATE SODIUM 100 MG CAPSULE PO SCH ×3 (09:12→17:48)
[2019-04-20] MEDS: SENNOSIDES/DOCUSATE 8.6-50 MG 1 EACH TABLET PO SCH ×2 (09:12→09:29)
[2019-04-21] MEDS: IBUPROFEN 800 MG TABLET PO SCH (05:24)
[2019-04-21 07:51] VITALS: BP 117/68
[2019-04-21] MEDS ORDERED: MEDROXYPROGESTERONE ACET INJ 150 MG/1 ML VIAL IM ONE (09:03)
--- NOTE | 2019-04-21 09:23 | PDOC DISCHARGE SUMMARY ---
Impression - Admit/DC Date/PCP Admission Date/Primary Care Provider: 04/19/19 08:16 RAUL LOVE MD Discharge Date: 04/21/19 - PP Day #2, doing well, bottle feeding, +THC this admission, Desires Depo Provera prior to going home today. Rh negative, Baby is RH negative, Rubella Immune - Discharge Diagnosis (1) Cannabis abuse Is this a current diagnosis for this admission?: Yes - Additional Information Resuscitation Status: Full Code Discharge Diet: As Tolerated, Regular Discharge Activity: Activity As Tolerated, No Lifting Over 10 Pounds, Pelvic Rest Referrals: RAUL LOVE MD [Primary Care Provider] - Prescriptions: Ibuprofen [Motrin 800 mg Tablet] 800 mg PO Q8 #60 tablet Home Medications: Ibuprofen [Motrin 800 mg Tablet] 800 mg PO Q8 #60 tablet 04/21/19 Vit/Dha [ Multi + Dha Capsule] 1 cap PO DAILY capsule 04/21/19 HPI Reason(s) for Admission: Onset of Labor Procedures: Ultrasound Intrapartum Procedure(s): Spontaneous Vaginal Delivery Hospital Course Hospital Course: routine PP course Results Laboratory Results: WBC 13.1 10^3/uL (4.0-10.5) H 04/20/19 06:42 RBC 3.92 10^6/uL (3.72-5.28) 04/20/19 06:42 Hgb 10.8 g/dL (12.0-15.5) L 04/20/19 06:42 Hct 31.8 % (36.0-47.0) L 04/20/19 06:42 MCV 81 fl (80-97) 04/20/19 06:42 MCH 27.5 pg (27.0-33.4) 04/20/19 06:42 MCHC 33.8 g/dL (32.0-36.0) 04/20/19 06:42 RDW 15.9 % (11.5-14.0) H 04/20/19 06:42 Plt Count 215 10^3/uL (150-450) 04/20/19 06:42 Lymph % (Auto) 18.0 % (13-45) 04/19/19 10:30 Chambers % (Auto) 4.0 % (3-13) 04/19/19 10:30 Eos % (Auto) 1.8 % (0-6) 04/19/19 10:30 Baso % (Auto) 0.5 % (0-2) 04/19/19 10:30 Absolute Neuts (auto) 9.4 10^3/uL (1.7-8.2) H 04/19/19 10:30 Absolute Lymphs (auto) 2.2 10^3/uL (0.5-4.7) 04/19/19 10:30 Absolute Monos (auto) 0.5 10^3/uL (0.1-1.4) 04/19/19 10:30 Absolute Eos (auto) 0.2 10^3/uL (0.0-0.6) 04/19/19 10:30 Absolute Basos (auto) 0.1 10^3/uL (0.0-0.2) 04/19/19 10:30 Seg Neutrophils % 75.7 % (42-78) 04/19/19 10:30 Urine Color YELLOW 04/19/19 07:41 Urine Appearance SLIGHTLY-CLOUDY 04/19/19 07:41 Urine pH 6.0 (5.0-9.0) 04/19/19 07:41 Ur Specific [place] 1.012 04/19/19 07:41 Urine Protein NEGATIVE mg/dL (NEGATIVE) 04/19/19 07:41 Urine Glucose (UA) NEGATIVE mg/dL (NEGATIVE) 04/19/19 07:41 Urine Ketones NEGATIVE mg/dL (NEGATIVE) 04/19/19 07:41 Urine Blood NEGATIVE (NEGATIVE) 04/19/19 07:41 Urine Nitrite NEGATIVE (NEGATIVE) 04/19/19 07:41 Urine Bilirubin NEGATIVE (NEGATIVE) 04/19/19 07:41 Urine Urobilinogen NEGATIVE mg/dL (<2.0) 04/19/19 07:41 Ur Leukocyte Esterase SMALL (NEGATIVE) H 04/19/19 07:41 Urine Ascorbic Acid NEGATIVE (NEGATIVE) 04/19/19 07:41 Urine Opiates Screen NEGATIVE 04/19/19 07:41 Urine Methadone Screen NEGATIVE 04/19/19 07:41 Ur Barbiturates Screen NEGATIVE 04/19/19 07:41 Ur Phencyclidine Scrn NEGATIVE 04/19/19 07:41 Ur Amphetamines Screen NEGATIVE 04/19/19 07:41 U Benzodiazepines Scrn NEGATIVE 04/19/19 07:41 Urine Cocaine Screen NEGATIVE 04/19/19 07:41 U Marijuana (THC) Screen UNCONFIRMED POSITIVE 04/19/19 07:41 RPR NONREACTIVE (NONREACTIVE) 04/19/19 10:30 Blood Type A NEGATIVE 04/19/19 10:30 Antibody Screen NEGATIVE 04/19/19 10:30 Plan Health Concerns: discourage THC use Plan of Treatment: d/c to home, Depo Provera prior to discharge. f/up with [facility] in 4 wks for PP check Time Spent: Less than 30 Minutes
[2019-04-21] MEDS: FAMOTIDINE 20 MG TABLET PO SCH (09:36)
[2019-04-21] MEDS: DOCUSATE SODIUM 100 MG CAPSULE PO SCH (09:36)
[2019-04-21] MEDS: FERROUS SULFATE 325 MG TABLET PO SCH (09:36)
[2019-04-21] MEDS: SENNOSIDES/DOCUSATE 8.6-50 MG 1 EACH TABLET PO SCH (09:37)
[2019-04-21] MEDS: PRENATAL VITAMIN W DHA CAPSULE PO SCH (09:37)
== END 2019-04-21 13:19 | disposition home or self-care (01) | DRG 806 ==
LOC: LC 07:44 → LR 08:16 → 2S 18:10
PROVIDERS: ADMIT Obstetrics & Gynecology; ATTEND Obstetrics & Gynecology
PROC: 10E0XZZ Delivery of Products of Conception, External Approach (ICD-10-PCS; principal; 2019-04-19)
PROC: 10907ZC Drainage of Amniotic Fluid, Therapeutic from Products of Conception, Via Natural or Artificial Opening (ICD-10-PCS; 2019-04-19)
DX: O62.3 Precipitate labor (principal); O99.324 Drug use complicating childbirth; Z37.0 Single live birth; F12.10 Cannabis abuse, uncomplicated; Z67.91 Unspecified blood type, Rh negative; Z3A.39 39 weeks gestation of pregnancy; Z88.6 Allergy status to analgesic agent
CPT/HCPCS: 36415; 80307; 80349; 81005; 85025; 85027; 86592; 86850; 86900; 86901; 94760; G0480; J1050; J2175; J2590; J3010; J3490